=== PATIENT | female | born 2005 | race Two or more races ===

== ENCOUNTER 2025-02-25 15:54 | Emergency (ER) | payer MEDICAID, SELFPAY ==
[2025-02-25 16:11] VITALS: BP 116/75; PULSE 90; RESP 16; TEMP 37; O2SAT 100
--- NOTE | 2025-02-25 16:18 | XR_ITS ---
Examination: Abdomen sonogram, Limited Date and time of exam: February 25, 2025, 1636 hours INDICATIONS: Onset right lower abdominal pain beginning this week Technique: Real-time truong scale transabdominal sonographic images of the upper abdomen obtained. Findings: Normal gallbladder Normal common bile duct 0.3 cm Pancreatic head 1.1 cm Liver 14.0 cm fatty infiltration no focal liver lesions. Normal hepatopetal portal venous Patent IVC IMPRESSION: Normal gallbladder Liver normal size fatty infiltration
--- NOTE | 2025-02-25 16:20 | PD.EDADULT ---
ED General RME/HPI General Chief complaint: Abdominal Pain Stated complaint: PELVIC PAIN, N/V POSITIVE TEST 1 WEEKAGO Time Seen by Provider: 02/25/25 16:17 Arrival date/time: 02/25/25 15:54 CC: Right upper quadrant abdominal pain nausea vomiting and positive test HPI onset of the clinical symptoms was 1 week ago. test was taken yesterday. Patient states she is irregular and she thinks her last menstrual cycle was the beginning of January. Patient currently no active vomiting abdominal pain is a 3-4 out of 10 scale. Review of the medical record show the patient was here in September for miscarriage. Related Data Previous Rx's ?Medication ?Instructions ?Recorded ibuprofen 100 mg/5 mL oral 320 mg (16 mL) PO Q6H PRN fever or 12/10/17 suspension pain #240 mL cephalexin 500 mg capsule 500 mg PO TID #21 caps 02/25/25 Allergies Allergy/AdvReac Type Severity Reaction Status Date / Time No Known Allergies Allergy Verified 12/09/17 20:21 Review of Systems Review of Systems Narrative Review of Systems: GEN: No fever, no chills, no weight loss EYES: No discharge, no visual changes, no pain HEENT: No ear pain, no congestion, no sore throat PULM: No shortness of breath, no cough, no congestion CV: No chest pain, no dyspnea on exertion, no palpitations GI: + nausea, + vomiting, no diarrhea, + pain, no constipation : No frequency, no urgency, no dysuria MUSC/SKEL: No joint pain, no back pain SKIN: No rash PSYCH: No hallucinations, no depression HEME/LYMPH: No easy bleeding or bruising tendencies NEURO: No weakness, no headache ED Exam Narrative Physical exam: [General: Anxious but not in any acute distress Head normocephalic HEENT: Within acceptable limits Neck is supple nontender Chest equal chest rise nontender to palpation Respiratory: Clear to auscultation no wheezes crackles or rubs CV: Rate rhythm is regular no murmurs rubs or clicks Abdomen is soft right upper quadrant tenderness with palpation no rebound tenderness no reflexive guarding. Back: No CVA tenderness no spinous process tenderness from cervical spine thoracic and lumbar spine Skin: Intact no petechiae rash induration ulceration or crepitus Extremities: Moving all extremity against resistance cap refill less than 2 seconds neurosensory intact Neuro: Awake alert oriented x3 Glascow coma 15 no focal deficits] Course Course Course Narrative: Discharge the patient with UTI and . Quality Measures none Orders Category Date Time Status US gall bladder Stat Exams 02/25/25 16:18 Completed Beta HCG,Quantitative Stat Lab 02/25/25 17:00 Completed CBC Stat Lab 02/25/25 17:00 Completed Comprehensive Metabolic Panel Stat Lab 02/25/25 17:00 Completed Drug Screen,Urine Stat Lab 02/25/25 16:33 Completed HCG Qualitative,Urine Stat Lab 02/25/25 16:33 Completed Lipase Stat Lab 02/25/25 17:00 Completed Urinalysis, C/S if Indicated Stat Lab 02/25/25 16:33 Completed Urine Culture Stat Lab 02/25/25 16:33 Received Vital Signs Vital signs: Vital Signs Temperature 98.6 F 02/25/25 16:11 Pulse Rate 90 02/25/25 16:11 Respiratory Rate 16 02/25/25 16:11 Blood Pressure 116/75 02/25/25 16:11 Pulse Oximetry (%) 100 02/25/25 16:11 Oxygen Delivery Method Room Air 02/25/25 16:11 Discharge Plan Plan Patient Disposition: HOME (Self Care) Patient condition on transfer: Stable Prescriptions/Referrals Prescriptions/Med Rec: New cephalexin 500 mg capsule 500 mg PO TID Qty: 21 0RF No Action ibuprofen 100 mg/5 mL suspension 320 mg PO Q6H PRN (Reason: fever or pain) Qty: 240 0RF Referrals: [facility]Ronda MD [Physician, PROFESSOR OF COUNSELING] - In 1 week No Primary/Family,Physician [Primary Care Provider] - In 1 week Problem List Clinical Impression: , UTI (urinary tract infection) Patient/Caregiver Discharge Instructions Education Materials: Your First Trimester ..., ED CYSTITIS Female Adult Additional Instructions: Take the medication as prescribed follow-up with your primary care doctor or the PROFESSOR OF COUNSELING listed above. Print Language: Guamanian Stand Alone Forms: Elisa Award Info., Work/School Release, Patient Portal Info Letter PA/CASHIER OR CHECKER STOCK CLERK Supervising Physician PA/CASHIER OR CHECKER STOCK CLERK Supervising Physician: Suresh Bales ENP [facility] Clinical Information Provided by: patient Medical Records reviewed [facility] Meds/Rx considered, not ordered None Labs/Rad/Tests considered, not ordered None Chronic Illness/Social Conditions which may negatively complicate care or outcome(s)-explain: None or not applicable Explain: None EKG EKG not done Labs Labs: interpreted by me Lab(s) Interpretation(s): CBC shows no acute leukocytosis anemia thrombocytopenia CMP shows no electrolyte imbalances renal impairment transaminitis or T. bili elevation Urine is there is potential [place] positive but also could be a contaminated with we will place the patient on antibiotics regardless hCG is positive quantitative hCG is 6000 UDS is negative Imaging Imaging interpretation: interpreted by me Imaging Interpretation(s): Gallbladder ultrasound is unremarkable.
[2025-02-25 17:00] LABS: Collection Type, Urine Clean Catch
[2025-02-25 17:04] LABS: HCG Qualitative,Urine Positive
[2025-02-25 17:07] LABS: Amorphous Crystals,Urine Present (Absent); Bacteria,Urine Rare; Bilirubin,Urine Negative (Negative); Blood,Urine Negative (Negative); Color,Urine Lt-Yellow (Lt Yel-Yel); Glucose, Urine Negative (Negative); Ketones,Urine Negative (Negative); Leukocyte Esterase,Urine Positive (Negative); Nitrite,Urine Negative (Negative); PH,Urine 6.5 (5.0-7.0); Protein,Urine Negative (Neg - Trace); RBC,Urine 6 /hpf (0-3); Specific Gravity,Urine 1.022 (1.001-1.035); Squamous Epithelial Cell,Urine 6 /hpf (0-5); Urobilinogen,Urine Negative mg/dL (0.0-1.0); WBC,Urine 19 /hpf (0-5)
[2025-02-25 17:11] LABS: Basophils # (Auto) 0.1 Thou/mm3 (0.0-0.2); Basophils % (Auto) 1 % (0-2.5); Eosinophils # (Auto) 0.2 Thou/mm3 (0.0-0.5); Eosinophils % (Auto) 1 % (0-10); Hematocrit 35.4 % (36.0-46.0); Hemoglobin 12.3 g/dL (12.0-16.0); Immature Granulocytes Auto 0.03 Thou/mm3 (0.00-0.00); Lymphocytes # (Auto) 2.3 Thou/mm3 (1.0-5.0); Lymphocytes % (Auto) 21 % (10-50); Mean Corpuscular HGB Conc 34.7 g/dl (31.0-37.0); Mean Corpuscular Hemoglobin 29.9 pg (25.0-35.0); Mean Corpuscular Volume 86 fL (80-100); Monocytes # (Auto) 1.1 Thou/mm3 (0.0-0.8); Monocytes % (Auto) 10 % (0-12); Neutrophils # (Auto) 7.0 Thou/mm3 (1.8-7.7); Neutrophils % (Auto) 66 % (37-80); Nucleated Red Blood Cell # 0.00 Thou/mm3 (0.00-0.00); Nucleated Red Blood Cell % 0 /100 WBC (0); Platelet Count 328 Thou/mm3 (140-440); RDW Standard Deviation 38.2 fL (36.4-46.3); Red Blood Count 4.12 Miln/mm3 (4.00-5.20); White Blood Count 10.6 Thou/mm3 (4.5-11.0)
[2025-02-25 17:12] LABS: Clarity,Urine Hazy (Clear/Hazy); Culture Indicated,Urine Yes
[2025-02-25 17:42] LABS: Alanine Aminotransferase 19 U/L (10-49); Albumin, Serum 4.5 gm/dL (3.5-5.0); Albumin/Globulin Ratio 1.9 (1.2-2.2); Alkaline Phosphatase 52 U/L (46-116); Anion Gap 11 (7-16); Aspartate Amino Transferase 22 U/L (0-34); BUN/Creatinine Ratio 14 Ratio (12-20); Bilirubin,Total 0.2 mg/dL (0.3-1.2); Blood Urea Nitrogen 7 mg/dL (9-23); Calcium 9.8 mg/dL (8.3-10.6); Calcium (Corrected) 9.8 mg/dL (8.5-10.1); Carbon Dioxide 22.1 mMol/L (20.0-31.0); Chloride 107 mMol/L (98-107); Creatinine (Component) 0.5 mg/dL (0.6-1.3); Globulin 2.4 gm/dL (2.3-3.5); Glucose 84 mg/dL (74-106); Lipase 35 U/L (12-53); Osmolality,Calculated 276 (275-295); Potassium 3.8 mMol/L (3.4-5.1); Sodium 140 mMol/L (136-145); Total Protein 6.9 gm/dL (5.7-8.2); eGFR > 60 See Note
[2025-02-25 18:12] LABS: Beta HCG,Quantitative 66241 mIU/mL (<5.0)
[2025-02-25 18:31] LABS: Amphetamine/Methamp Scrn,U Negative (Negative); Barbiturate Screen,Urine Negative (Negative); Benzodiazepines Screen,Urine Negative (Negative); Benzoylecgonine Screen, Ur Negative (Negative); Fentanyl Screen,Urine Negative (Negative); Opiate Screen,Urine Negative (Negative); THC Screen,Urine Negative (Negative)
[2025-02-25 18:40] VITALS: BP 112/77; PULSE 79; RESP 18; TEMP 36.7; O2SAT 96
== END 2025-02-25 18:54 | disposition home or self-care (01) ==
PROVIDERS: Registered Nurse General Practice; Emergency Provider Family Medicine
DX: O23.40 Unspecified infection of urinary tract in pregnancy, unspecified trimester (principal); N30.90 Cystitis, unspecified without hematuria
CPT/HCPCS: 36415; 76705; 80053; 80307; 81001; 81025; 83690; 84702; 85025; 87077; 87086; 87186; 99283

== ENCOUNTER 2025-03-08 09:19 | Emergency (ER) | payer MEDICAID, SELFPAY ==
[2025-03-08 09:37] VITALS: BP 115/75; PULSE 81; RESP 16; TEMP 37; O2SAT 98; BMI 18.3
--- NOTE | 2025-03-08 09:37 | XR_ITS ---
Examination: Complete OB ultrasound, less than 14 weeks, transabdominal Date and time of exam: March 08, 2025, 1039 hours INDICATIONS: Vaginal bleeding beginning 4 days ago Technique: Obstetrical ultrasound images less than 14 weeks performed via transabdominal imaging Findings: Uterus 7.2 cm, no uterine or uterine gestation Thickened heterogeneous endometrial stripe 14 mm Right ovary 2.9 cm arterial flow. Left ovary 2.7 cm arterial flow IMPRESSION: Findings most consistent with mild retained products of conception
--- NOTE | 2025-03-08 09:37 | PD.EDVAGBL ---
ED OB Contraction Preg RMI/HPI General Chief complaint: Vaginal Bleeding Stated complaint: VAGINAL BLEEDING, PREG 7 WKS Time Seen by Provider: 03/08/25 09:39 Source: patient Arrival date/time: 03/08/25 09:19 19-year-old female with no known medical history presents to the emergency room with a chief complaint of abdominal cramping and vaginal bleeding x 4 days Patient is currently 7 weeks . She is a G1, P0. Mode of arrival: ambulatory Limitations: no limitations Related Data Previous Rx's ?Medication ?Instructions ?Recorded ibuprofen 100 mg/5 mL oral 320 mg (16 mL) PO Q6H PRN fever or 12/10/17 suspension pain #240 mL cephalexin 500 mg capsule 500 mg PO TID #21 caps 02/25/25 doxycycline monohydrate 100 mg 100 mg PO BID 7 days #14 caps 03/08/25 capsule Allergies Allergy/AdvReac Type Severity Reaction Status Date / Time No Known Allergies Allergy Verified 03/08/25 09:21 Review of Systems Review of Systems Systems Reviewed: All systems reviewed, normal except as documented Constitutional Constitutional: Reports system reviewed and no additional complaints, except as documented, Denies fatigue, Denies fever(s), Denies headache(s) and Denies weakness Eyes Eyes: Reports system reviewed and no additional complaints, except as documented, Denies blurry vision and Denies change in vision ENT Ears, Nose, Mouth, and Throat: Reports system reviewed and no additional complaints, except as documented, Denies otalgia, Denies headache(s), Denies nasal congestion, Denies throat swelling and Denies vertigo Cardiovascular Cardiovascular: Reports system reviewed and no additional complaints, except as documented, Denies chest pain, Denies dyspnea and Denies dyspnea on exertion Respiratory Respiratory: Reports system reviewed and no additional complaints, except as documented, Denies chest congestion, Denies cough, Denies dyspnea, Denies dyspnea on exertion and Denies wheezing Gastrointestinal Gastrointestinal: Reports system reviewed and no additional complaints, except as documented, Denies abdominal pain, Denies cramping, Denies nausea and Denies vomiting Genitourinary Genitourinary: Reports system reviewed and no additional complaints, except as documented, Reports abnormal vaginal bleeding and Reports pelvic pain Musculoskeletal Musculoskeletal: Reports system reviewed and no additional complaints, except as documented and Denies back pain Integumentary/Breasts Skin/Breast: Reports system reviewed and no additional complaints, except as documented and Denies wounds Neurologic Neurologic: Reports system reviewed and no additional complaints, except as documented, Denies confusion, Denies headache(s), Denies lack of coordination, Denies vertigo and Denies weakness Psychiatric Psychiatric: Reports system reviewed and no additional complaints, except as documented, Denies anxiety, Denies confusion, Denies depression, Denies paranoia, Denies suicidal ideation and Denies tactile hallucinations Endocrine Endocrine: Reports system reviewed and no additional complaints, except as documented and Denies fatigue Hematologic/Lymphatic Hematologic/Lymphatic: Reports system reviewed and no additional complaints, except as documented and Denies lymphadenopathy Allergic/Immunologic Allergic/Immunologic: Reports system reviewed and no additional complaints, except as documented, Denies throat swelling, Denies urticaria and Denies wheezing Past Medical History Past Medical History CARDIAC: Negative Congestive Heart Failure RESPIRATORY: Negative Chronic Obstructive Pulmonary Disease (COPD) GENITOURINARY: Negative Renal Disease ENDOCRINE: Negative Diabetes Mellitus Type 1 or Diabetes Mellitus Type 2 Social History SMOKING STATUS: Never smoker ED Exam General Limitations: Present no limitations General appearance: Present alert and in no apparent distress Head Head exam: Present atraumatic Eye Eye exam: Present normal appearance, PERRL and EOMI ENT ENT exam: Present normal exam, normal oropharynx and mucous membranes moist Neck Neck exam: Present normal inspection, full ROM and trachea midline Chest Chest inspection: Present normal inspection and symmetric chest wall rise Respiratory Respiratory exam: Present normal lung sounds bilaterally Cardiovascular Cardiovascular exam: Present regular rate, normal rhythm and normal heart sounds Abdominal Exam Abdominal exam: Present soft, tenderness and normal bowel sounds Abdominal tenderness: Present suprapubic Extremities Exam Extremities exam: Present normal inspection and full ROM Back Exam Back exam: Present normal inspection and full ROM Neurological Exam Neurological exam: Present alert, oriented X3 and CN II-XII intact Psychiatric Psychiatric exam: Present normal affect and normal mood Skin Skin exam: Present warm, dry, intact and normal color Course Quality Measures none Orders Category Date Time Status Consult to Gynecology Stat Cons 03/08/25 12:29 Ordered US OB <= 14 weeks fetus Stat Exams 03/08/25 09:37 Completed ABO/RH Type Stat Lab 03/08/25 09:40 Completed Beta HCG,Quantitative Stat Lab 03/08/25 09:40 Completed CBC Stat Lab 03/08/25 09:40 Completed CMP [Comprehensive Metabolic Panel] Stat Lab 03/08/25 09:40 Completed UA [Urinalysis] Stat Lab 03/08/25 09:56 Completed Vital Signs Vital signs: Vital Signs Temperature 98.6 F 03/08/25 09:37 Pulse Rate 81 03/08/25 09:37 Respiratory Rate 16 03/08/25 09:37 Blood Pressure 115/75 03/08/25 09:37 Pulse Oximetry (%) 98 03/08/25 09:37 Oxygen Delivery Method Room Air 03/08/25 09:37 Vaginal Bleeding MDM Narrative MDM Narrative: 19-year-old female with no known medical history presents to the emergency room with a chief complaint of abdominal cramping and vaginal bleeding x 4 days Patient is currently 7 weeks . She is a G1, P0. Patient is hemodynamically stable and in no apparent distress Physical examination shows some bilateral abdominal cramping Ultrasound was completed and showed no intrauterine gestation. Ultrasound shows the findings are most consistent with mild retained products of conception. Dr. Sterling the GENERAL NEUROLOGIST on-call was consulted and his recommendations are that he will follow-up with the patient next in his clinic as a walk-in. He also recommended to send the patient home with antibiotics Patient was discharged and educated to follow-up with primary care provider in the next 24 to 48 hours and return to the emergency room for any evidence of worsening signs or symptoms Patient data External records reviewed:: [facility] previous records Clinical information provided by:: patient Social determinants that could affect healthcare access:: none Patient has the following chronic illnesses:: No chronic illness How is presenting disease/condition affected by chronic disease/condition?: no chronic disease Evaluation data The following diagnostics were reviewed and interpreted by me:: lab results and radiology exam(s) Lab and/or radiology exams considered but not ordered:: Labs and radiology exams considered and ordered Interpretation Summary: Ultrasound OB-Findings: Uterus 7.2 cm, no uterine or uterine gestation Thickened heterogeneous endometrial stripe 14 mm Right ovary 2.9 cm arterial flow. Left ovary 2.7 cm arterial flow IMPRESSION: Findings most consistent with mild retained products of conception Medications / Prescriptions Medications or Prescriptions considered but not ordered:: No medication given Medication administrations:: No medication given Consultations Consultation(s) initiated? (list below): Yes Consultation #1 (Physician, Specialty, Details): Dr. Sterling, GENERAL NEUROLOGIST on-call Time: 12:29 Diagnosis Vaginal Bleeding Differential Diagnosis: threatened , dysfunctional uterine bleeding, incomplete , ectopic without intrauterine , vaginal bleeding and other (Retained products of conception) Most likely diagnosis given after review of the tests above:: Vaginal bleeding/retained products of conception Admission Indicated Admission indicated?: not indicated Admission Request Was there a request for admission?: No Disposition Plan Disposition Plan: Discharge Discharge Attestation Discharge Attestation: The patient and all family members were given an opportunity to ask questions and understood the discharge instructions. Discharge instructions specifically effects, indications for sooner follow up or return to the emergency department, and the expected course of current diagnosis. Patient condition: Stable Discharge Plan Plan Patient Disposition: HOME (Self Care) Discharge Disposition comment: Stable Prescriptions/Referrals Prescriptions/Med Rec: New doxycycline monohydrate 100 mg capsule 100 mg PO BID 7 Days Qty: 14 0RF No Action ibuprofen 100 mg/5 mL suspension 320 mg PO Q6H PRN (Reason: fever or pain) Qty: 240 0RF cephalexin 500 mg capsule 500 mg PO TID Qty: 21 0RF Referrals: Angelo Sterling MD [Physician, GENERAL NEUROLOGIST] - 03/17/25 No Primary/Family,Physician [Primary Care Provider] - In 1 week Problem List Clinical Impression: Vaginal bleeding Patient/Caregiver Discharge Instructions Education Materials: ED Dysfunctional Uterine Bleeding Additional Instructions: Please follow-up with Dr. Sterling the GENERAL NEUROLOGIST next in his clinic as a walk-in Antibiotics are sent to your pharmacy please pick them up and take them as indicated For any evidence of worsening signs or symptoms return to the emergency room immediately Print Language: Citizen Of [place] Stand Alone Forms: Elisa Award Info., Work/School Release, Patient Portal Info Letter PA/SECONDARY SPECIAL EDUCATION TEACHER Supervising Physician PA/SECONDARY SPECIAL EDUCATION TEACHER Supervising Physician: Dr. Kelly
[2025-03-08 10:07] LABS: Collection Type, Urine Clean Catch
[2025-03-08 10:08] LABS: Basophils # (Auto) 0.1 Thou/mm3 (0.0-0.2); Basophils % (Auto) 1 % (0-2.5); Eosinophils # (Auto) 0.1 Thou/mm3 (0.0-0.5); Eosinophils % (Auto) 1 % (0-10); Hematocrit 36.2 % (36.0-46.0); Hemoglobin 12.3 g/dL (12.0-16.0); Immature Granulocytes Auto 0.02 Thou/mm3 (0.00-0.00); Lymphocytes # (Auto) 1.7 Thou/mm3 (1.0-5.0); Lymphocytes % (Auto) 24 % (10-50); Mean Corpuscular HGB Conc 34.0 g/dl (31.0-37.0); Mean Corpuscular Hemoglobin 29.6 pg (25.0-35.0); Mean Corpuscular Volume 87 fL (80-100); Monocytes # (Auto) 0.5 Thou/mm3 (0.0-0.8); Monocytes % (Auto) 7 % (0-12); Neutrophils # (Auto) 4.7 Thou/mm3 (1.8-7.7); Neutrophils % (Auto) 67 % (37-80); Nucleated Red Blood Cell # 0.00 Thou/mm3 (0.00-0.00); Nucleated Red Blood Cell % 0 /100 WBC (0); Platelet Count 382 Thou/mm3 (140-440); RDW Standard Deviation 39.6 fL (36.4-46.3); Red Blood Count 4.15 Miln/mm3 (4.00-5.20); White Blood Count 7.0 Thou/mm3 (4.5-11.0)
[2025-03-08 10:22] LABS: Bacteria,Urine Rare; Bilirubin,Urine Negative (Negative); Blood,Urine 2+ (Negative); Color,Urine Yellow (Lt Yel-Yel); Glucose, Urine Negative (Negative); Ketones,Urine 1+ (Negative); Leukocyte Esterase,Urine Positive (Negative); Nitrite,Urine Negative (Negative); PH,Urine 6.0 (5.0-7.0); Protein,Urine Trace (Neg - Trace); RBC,Urine 5 /hpf (0-3); Specific Gravity,Urine 1.026 (1.001-1.035); Squamous Epithelial Cell,Urine 2 /hpf (0-5); Urobilinogen,Urine Negative mg/dL (0.0-1.0); WBC,Urine 20 /hpf (0-5)
[2025-03-08 10:37] LABS: Clarity,Urine Hazy (Clear/Hazy)
[2025-03-08 10:38] LABS: Alanine Aminotransferase 46 U/L (10-49); Albumin, Serum 5.2 gm/dL (3.5-5.0); Albumin/Globulin Ratio 2.2 (1.2-2.2); Alkaline Phosphatase 70 U/L (46-116); Anion Gap 12 (7-16); Aspartate Amino Transferase 27 U/L (0-34); BUN/Creatinine Ratio 13 Ratio (12-20); Bilirubin,Total 0.6 mg/dL (0.3-1.2); Blood Urea Nitrogen 8 mg/dL (9-23); Calcium 9.6 mg/dL (8.3-10.6); Calcium (Corrected) 9.6 mg/dL (8.5-10.1); Carbon Dioxide 25.0 mMol/L (20.0-31.0); Chloride 106 mMol/L (98-107); Creatinine (Component) 0.6 mg/dL (0.6-1.3); Estimated Creatinine Clearance 101.5 mL/min (>60); Globulin 2.4 gm/dL (2.3-3.5); Glucose 85 mg/dL (74-106); Osmolality,Calculated 282 (275-295); Potassium 3.8 mMol/L (3.4-5.1); Sodium 143 mMol/L (136-145); Total Protein 7.6 gm/dL (5.7-8.2); eGFR > 60 See Note
[2025-03-08 10:51] LABS: Beta HCG,Quantitative 1328 mIU/mL (<5.0)
[2025-03-08 13:18] VITALS: BP 124/78; PULSE 78
--- NOTE | 2025-03-08 14:02 | PD.GYNCONS ---
[facility] HPI Data of Consult Patient: new to practice Consult date: 03/08/25 Primary Care Provider: Physician No Primary/Family Consult Narrative History of present illness: Chief Complaint Bleeding in early Alyssa Cotter is a 19-year-old [id number] at approximately 7 weeks gestation by last menstrual period, presenting to the emergency room with bleeding in early . The patient was previously seen on February 25 and is now returning with ongoing bleeding. She reports that her current bleeding is not a lot in terms of rate or volume. Medical History: - Emergency room visit on February 25, 2025 Obstetric History: - GPAL: G1 T0 L0 - Recent miscarriage at approximately 7 weeks gestation by last menstrual period in February 2025 Diagnostic Test Results and Labs: - Serum beta-hCG (03/08/2025): 1,328 mIU/mL - Pelvic ultrasound (03/08/2025): Uterus 7.2 cm, no intrauterine gestation, thickened heterogeneous endometrial stripe measuring 14 mm, right ovary 2.9 cm, left ovary 2.7 cm - Serum beta-hCG (02/25/2025): 66,200 mIU/mL cc:: cc: Meds Home Medications and Allergies Allergies Allergy/AdvReac Type Severity Reaction Status Date / Time No Known Allergies Allergy Verified 03/08/25 09:21 Exam - [facility] Vital Signs Temp Pulse Resp BP Pulse Ox O2 Del Method 98.6 F 78 16 124/78 98 Room Air 03/08/25 09:37 03/08/25 13:18 03/08/25 09:37 03/08/25 13:18 03/08/25 09:37 03/08/25 09:37 Constitutional Constitutional: no acute distress Routine HEENT Exam Head: Present normocephalic and atraumatic Eye: Present EOMI and PERRL ENT: Present mucous membranes moist Routine Neck Exam Neck: Present supple and trachea midline Routine Respiratory Exam Respiratory: Present chest non-tender, lungs clear, normal breath sounds and no resp distress Routine Cardiovascular Exam Cardiovascular: Present RRR Routine Abdominal Exam Abdominal: Present soft and normoactive bowel sounds Routine Extremities Exam Extremities: Present full ROM Routine Skin Exam Skin: Present intact and dry Routine Neurological Exam Neurological: Present alert, oriented X3 and CN II-XII intact Routine Psychiatric Exam Psychiatric: Present normal affect and normal thought process [facility] - Results Labs 03/08/25 09:40 03/08/25 09:40 Labs: Short CBC 03/08/25 Range/Units 09:40 WBC 7.0 (4.5-11.0) Thou/mm3 Hgb 12.3 (12.0-16.0) g/dL Hct 36.2 (36.0-46.0) % Plt Count 382 D (140-440) Thou/mm3 BMP 03/08/25 09:40 Sodium 143 Potassium 3.8 Chloride 106 Carbon Dioxide 25.0 BUN 8 L Creatinine 0.6 Glucose 85 Calcium 9.6 Liver Function 03/08/25 Range/Units 09:40 Total Bilirubin 0.6 (0.3-1.2) mg/dL AST 27 (0-34) U/L ALT 46 (10-49) U/L Alkaline Phosphatase 70 (46-116) U/L Albumin 5.2 H (3.5-5.0) gm/dL Urine 03/08/25 Range/Units 09:56 Urine Color Yellow (Lt Yel-Yel) Urine Clarity Hazy (Clear/Hazy) Urine pH 6.0 (5.0-7.0) Ur Specific [place] 1.026 (1.001-1.035) Urine Protein Trace (Neg - Trace) Urine Glucose (UA) Negative (Negative) Assessment and Plan Assessment and plan (1) Spontaneous : Status: Acute Assessment and plan: Incomplete miscarriage Assessment: Patient presents with bleeding in early at approximately 7 weeks gestation by last menstrual period. Serial beta-hCG levels demonstrate significant decline from 66,200 on 02/25 to 1,328 today, indicating nearly completed miscarriage. Transvaginal ultrasound shows uterus measuring 7.2 cm with no intrauterine gestation, thickened heterogeneous endometrial stripe measuring 14 mm consistent with blood and clots (retained products). Both ovaries appear normal in size. Current bleeding is minimal. Given the dramatic hormone decline and patient's young age, expectant management is appropriate to avoid unnecessary surgical intervention. Plan: - Expectant management with serial monitoring - Follow-up in clinic next week for repeat ultrasound to ensure complete clearance - Patient can present as walk-in to [facility] - Doxycycline 100 mg BID for 7 days for infection prophylaxis - Return precautions: fever, chills, or foul-smelling discharge warrant immediate evaluation - Discharge home today - Counseling provided regarding nature of miscarriage and future fertility
== END 2025-03-08 13:19 | disposition home or self-care (01) ==
PROVIDERS: Emergency Provider Nurse Practitioner Family
DX: O03.4 Incomplete spontaneous abortion without complication (principal); Z3A.01 Less than 8 weeks gestation of pregnancy
CPT/HCPCS: 36415; 76801; 80053; 81001; 84702; 85025; 86900; 86901; 99285

== ENCOUNTER 2025-03-17 15:38 | Outpatient (AMB) | payer MEDICAID, SELFPAY ==
[2025-03-17 15:54] VITALS: BP 118/70; PULSE 97; RESP 16; TEMP 36.2; O2SAT 97; BMI 38.2
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
== END 2025-03-17 15:54 | disposition home or self-care (01) ==
LOC: HODSOBC 15:38
PROVIDERS: Supervising Provider Obstetrics & Gynecology; Visit Provider Obstetrics & Gynecology
DX: O03.9 Complete or unspecified spontaneous abortion without complication (principal)
CPT/HCPCS: 99213; G0463

== ENCOUNTER 2025-03-23 08:17 | Outpatient (AMB) | payer MEDICAID, SELFPAY ==
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
== END 2025-03-23 08:53 | disposition home or self-care (01) ==
PROVIDERS: Supervising Provider Obstetrics & Gynecology; Visit Provider Obstetrics & Gynecology
DX: O03.9 Complete or unspecified spontaneous abortion without complication (principal)
CPT/HCPCS: 99212; G0463